=== PATIENT | female | born 1975 | race Caucasian/White ===

== ENCOUNTER 2019-03-29 10:47 | Emergency (ER) | payer BC, OTHER ==
[2019-03-29 11:00] VITALS: BP 116/73; PULSE 86; TEMP 98.1; BMI 32.8
[2019-03-29] MEDS ORDERED: KETOROLAC TROMETHAMINE 15 MG/ML VIAL IM ONE (11:29)
[2019-03-29] MEDS ORDERED: diazePAM 5 MG TABLET PO ONE ×2 (11:30→16:42)
[2019-03-29] MEDS ORDERED: LIDOCAINE 5% TOPICAL PATCH TP ONE (11:30)
[2019-03-29] MEDS ORDERED: KETOROLAC TROMETHAMINE 15 MG/ML VIAL ONE (11:45)
[2019-03-29] MEDS ORDERED: LIDOCAINE 5% TOPICAL PATCH ONE (11:45)
[2019-03-29] MEDS ORDERED: diazePAM 5 MG TABLET ONE ×2 (11:45→16:46)
[2019-03-29 12:20] LABS: BASO % 0.6 % (0-2.0); EOS % 4.5 % (0-4.5); LYMPH % 29.7 % (8-40); MCH 28.9 pg (25.7-33.7); MCHC 34.2 g/dl (32.0-36.0); MEAN CELL VOLUME 84.7 fl (80-96); MEAN PLT VOLUME 8.9 fl (7.5-11.1); NEUT % 57.2 % (42.8-82.8); PLATELET COUNT 322 K/MM3 (134-434); RBC 4.83 M/mm3 (3.60-5.2); WHITE BLOOD COUNT 6.4 K/mm3 (4.0-10.0)
[2019-03-29 12:35] LABS: ALBUMIN 3.8 g/dl (3.4-5.0); BILIRUBIN,TOTAL 0.4 mg/dL (0.2-1); BLOOD UREA NITROGEN 13.5 mg/dL (7-18); CALCIUM 9.2 mg/dL (8.5-10.1); CREATININE 0.8 mg/dL (0.55-1.3); TOT PROT 7.4 g/dl (6.4-8.2)
[2019-03-29] MEDS ORDERED: ACETAMINOPHEN 500 MG TABLET (FP) PO ONE (13:22)
--- NOTE | 2019-03-29 13:23 | PDOC ---
History of Present Illness - General Chief Complaint: Back Pain Stated Complaint: LOWER BACK PAIN/ RT OVARY PAIN Time Seen by Provider: 03/29/19 11:01 History Source: Patient Exam Limitations: No Limitations Past History - Travel Traveled outside of the country in the last 30 days: No Close contact w/someone who was outside of country & ill: No - Past Medical History Allergies/Adverse Reactions: Allergies Allergy/AdvReac Type Severity Reaction Status Date / Time Penicillins Allergy Verified 03/29/19 10:55 Home Medications: Ambulatory Orders Diazepam [Valium] 5 mg PO Q8H #10 tablet MDD 3 03/29/19 Methylprednisolone [Medrol Dose Geovanny] 4 mg PO ASDIR #21 tablet 03/29/19 COPD: No - Immunization History Immunization Up to Date: Yes - Psycho Social/Smoking Cessation Hx Smoking History: Never smoked Have you smoked in the past 12 months: No Information on smoking cessation initiated: No Hx Alcohol Use: No Drug/Substance Use Hx: No *Physical Exam - Vital Signs Last Vital Signs Temp Pulse Resp BP Pulse Ox 98.1 F 86 17 116/73 100 03/29/19 10:56 03/29/19 10:56 03/29/19 10:56 03/29/19 10:56 03/29/19 10:56 ED Treatment Course - LABORATORY CBC & Chemistry Diagram: 03/29/19 11:40 03/29/19 11:40 - ADDITIONAL ORDERS Additional order review: Laboratory Results 03/29/19 11:40 Sodium 137 Potassium 4.0 Chloride 104 Carbon Dioxide 28 Anion Gap 4 L BUN 13.5 Creatinine 0.8 Est GFR (CKD-EPI)AfAm 104.65 Est GFR (CKD-EPI)NonAf 90.30 Random Glucose 94 Calcium 9.2 Total Bilirubin 0.4 AST 17 ALT 33 Alkaline Phosphatase 76 Total Protein 7.4 Albumin 3.8 03/29/19 11:40 RBC 4.83 MCV 84.7 MCHC 34.2 RDW 14.0 MPV 8.9 Neutrophils % 57.2 Lymphocytes % 29.7 Monocytes % 8.0 Eosinophils % 4.5 Basophils % 0.6 - RADIOLOGY Radiology Studies Ordered: Category Date Time Status SPINE-LUMBAR SACRAL [RAD] Stat Radiology 03/29/19 11:29 Taken TRANSVAGINAL ULTRASOUND US [US] Stat Ultrasound 03/29/19 11:28 Taken - Medications Given in the ED: ED Medications Discontinued Medications Generic Name Dose Route Start Last Admin Trade Name Evangelist PRN Reason Stop Dose Admin Diazepam 5 mg 03/29/19 11:30 03/29/19 12:00 Valium - PO 03/29/19 11:31 5 mg ONCE ONE Administration Ketorolac Tromethamine 15 mg 03/29/19 11:29 03/29/19 12:00 Toradol Injection - IM 03/29/19 11:30 15 mg ONCE ONE Administration Lidocaine 1 patch 03/29/19 11:30 03/29/19 12:00 Lidoderm Patch - TP 03/29/19 11:31 1 patch ONCE ONE Administration Discharge - Discharge Information Problems reviewed: Yes Clinical Impression/Diagnosis: Low back pain Qualifiers: Chronicity: acute Back pain laterality: right Sciatica presence: with sciatica Sciatica laterality: sciatica of right side Qualified Code(s): M54.41 - Lumbago with sciatica, right side Condition: Stable Disposition: HOME - Admission No - Follow up/Referral Referrals: Eladio Andrade MD, [facility] [Staff Physician] - - Patient Discharge Instructions Patient Printed Discharge Instructions: DI for Low Back Pain Additional Instructions: You were evaluated for your back pain today. It is most likely musculoskeletal in nature. Your CAT scan did not show any kidney stones. Your ultrasound showed 2 small cysts but I do not think this is the cause of your pain. Please take the Valium and prednisone pack as directed. Do not drink or drive after taking the Valium as it may make you drowsy. Please follow-up with Dr. Crockett this week given your pain. His number has been provided to you. Return to the ER for worsening pain, numbness and tingling down the extremity, loss of bladder or bowel function, numbness in your groin or if you have any changes in your symptoms. - Post Discharge Activity
[2019-03-29] MEDS ORDERED: ACETAMINOPHEN 500 MG TABLET (FP) ONE (13:24)
[2019-03-29] MEDS ORDERED: ACETAMINOPHEN 325 MG TABLET (FP) ONE (13:25)
[2019-03-29 13:35] LABS: EPI CELLS 4.4 /HPF (0-5/HPF); HYALINE CASTS 1 /lpf (0-8); URINE APPEARANCE CLEAR; URINE BACTERIA 22.2 /hpf (NEGATIVE); URINE BILIRUBIN NEGATIVE (NEGATIVE); URINE COLOR YELLOW; URINE GLUCOSE (UA) NEGATIVE (NEGATIVE); URINE KETONE NEGATIVE (NEGATIVE); URINE LEUK ESTERASE NEGATIVE (NEGATIVE); URINE NITRITE NEGATIVE (NEGATIVE); URINE PROTEIN NEGATIVE (NEGATIVE); URINE RBC 2 /hpf (0-4); URINE UROBILINOGEN 0.2 mg/dL (0.2-1.0); URINE WBC 1 /hpf (0-5)
== END 2019-03-29 17:01 | disposition home or self-care (01) ==
LOC: JERFT 10:47
PROC: 3E0233Z Introduction of Anti-inflammatory into Muscle, Percutaneous Approach (ICD-10-PCS; principal; 2019-03-29)
DX: M54.41 Lumbago with sciatica, right side (principal)
CPT/HCPCS: 36415; 72100-TC-FY; 74176-TC; 76830-TC; 80053; 81003; 84703; 85025; 87086; 99283-25